=== PATIENT | male | born 1960 | race Caucasian/White ===

== ENCOUNTER → 2018-07-01 | Outpatient (CLI) | payer OTHER ==
--- NOTE | 2018-07-01 17:26 | RADIOLOGY IMAGING REPORT ---
FACILITY: [facility] - [place] PATIENT NAME: Joe Tracy : 1960 MR: [id number] V: [id number] EXAM DATE: ORDERING PHYSICIAN: MIMA GRIMES TECHNOLOGIST: Location: [facility] Patient: Joe Tracy : 1960 Visit/Account:[id number] Date of Sevice: 07/01/2018 Exam type: CERVICAL SPINE 2 OR 3 VIEW History: Neck pain x20 years worsening recently Comparison: None. Findings: Three views of the cervical spine were submitted there is at least moderate disc space narrowing at C 5-C6 with sclerosis of the adjacent endplates, uncovertebral spurring and anterior osteophytes. There is at least moderate narrowing at C6-7 with mild degenerative endplate changes. There is no ev idence of prevertebral soft tissue swelling IMPRESSION: 1. At least moderate disc space narrowing C5-6 and C6-7 as described above Report Dictated By: Carla Enriquez MD at 07/01/2018 5:20 PM Report E-Signed By: Carla Enriquez MD at 07/01/2018 5:21 PM WSN:[id number]
== END ==
LOC: RAD 14:50
PROVIDERS: ATTEND Nurse Practitioner Family
DX: M54.2 Cervicalgia (principal)
CPT/HCPCS: 72040